=== PATIENT | male | born 1955 | race Caucasian/White ===

== ENCOUNTER 2021-12-24 02:19 | Day surgery (SDC) | payer OTHER, SELFPAY ==
[2021-12-09 14:33] VITALS: BMI 46.9
[2021-12-24 09:47] VITALS: BP 114/82; PULSE 73; RESP 22; TEMP 36; O2SAT 97; BMI 45.7
[2021-12-24] MEDS: LACTATED RINGERS 1,000 ML 150 ML IV CONT (10:06)
--- NOTE | 2021-12-24 10:40 | PM.IMHP ---
H&P: HPI History of Present Illness Date/Time: 12/24/21 10:40 Chief Complaint: History of colon polyps. Narrative: This is a 66-year-old white male patient presents for screening colonoscopy. Patient reports that his current weight appetite and bowel movements are normal. He denies abdominal pain. Patient has had no bleeding. Family history noncontributory. Patient does have a prior history of adenomatous colon polyp removed from the colon at previous colonoscopy 2016. Patient presents today for neoplasia screening. Review of Systems Review of Systems: Review of systems noncontributory. [facility] Past Medical History Medical History (Updated 12/24/21 @ 10:41 by Maurilio Vázquez MD) Aortic atherosclerosis History of fracture of left ankle History of TIA (transient ischemic attack) Hypertension Morbid obesity with BMI of 45.0-49.9, adult Pure hypercholesterolemia, unspecified Ventral hernia Surgical History Surgical History (Updated 07/30/21 @ 11:25 by Tyler Bishop) History of appendectomy History of carpal tunnel surgery of right wrist History of surgery on arm left Family History Family History (System 07/30/21 @ 11:25 by Tyler Bishop) Father Acute myocardial infarction Heart disease Diabetes mellitus Social History Social History (System 07/30/21 @ 11:25 by Tyler Bishop) Smoking packs per day: 1 Smoking cigarettes per day: 20.0 Years smoked: 20 Smoking pack-years: 20.00 Smoking status: Former smoker Tobacco type: cigarettes Alcohol intake: never Alcohol use details: 6 pack per year Substance use: never Substance use type: does not use Living arrangements: with family 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[employer] Gender identity (if verbalized by the patient): Male Sexual Orientation (if Verbalized by the Patient): Straight or Heterosexual Spiritual care concerns: No Meds Home Medications and Allergies Home Medications Medication Instructions Recorded Confirmed Type lisinopril 30 mg tablet 30 mg PO DAILY #90 tabs 07/07/21 12/09/21 Rx aspirin 81 mg tablet,delayed 81 mg PO DAILY 07/08/21 12/09/21 History release (Adult Low Dose Aspirin) ezetimibe 10 mg tablet 10 mg PO DAILY #90 tabs 07/08/21 12/09/21 Rx Allergies Allergy/AdvReac Type Severity Reaction Status Date / Time [id number] Reductase AdvReac Mild Muscle Verified 12/09/21 14:31 Inhibitor aches Vital Signs Vital Signs - 24 hr 12/24/21 09:47 Temperature 96.8 F L Pulse Rate 73 Respiratory Rate 22 H Blood Pressure 114/82 Pulse Oximetry 97 Oxygen Delivery Room Air Exam Narrative: Physical exam reveals patient be alert. Vital signs stable. HEENT exam is unremarkable. Patient is anicteric. Lungs are clear to auscultation and percussion. Heart is without murmur or extra sounds. Abdominal exam bowel sounds are present soft nontender with no organomegaly. Digital external rectal exam is normal. Assessment and Plan Assessment and plan (1) History of colon polyps: Code(s): Z86.010 - Personal history of colonic polyps Status: Acute Assessment and Plan: Patient has a prior history of adenomatous colon polyps. Plan is for follow-up colonoscopy at this time and it intervals in the future. Further recommendations will be given after colonoscopy.
--- NOTE | 2021-12-24 10:48 | WPDANESEPPF ---
Anes - Initial Pre Proc Eval Procedure: Operation Date: 12/24/21 10:45 Proposed Procedures p Screening Colonoscopy - Maurilio Vázquez MD Date/Time: 12/24/21 10:48 Surgeon: Maurilio Vázquez MD Pre Op Diagnosis: hx of colon polyps, neoplasm screening Patient Data Age: 66 Gender: M Height: 1.83 m Weight: 153 kg Last Vital Signs Temp 96.8 F L 12/24/21 09:47 Pulse 73 12/24/21 09:47 Resp 22 H 12/24/21 09:47 BP 114/82 12/24/21 09:47 Pulse Ox 97 12/24/21 09:47 O2 Del Method Room Air 12/24/21 09:47 Allergies Allergy/AdvReac Type Severity Reaction Status Date / Time [id number] Reductase AdvReac Mild Muscle Verified 12/09/21 14:31 Inhibitor aches Home Medications Medication Instructions Recorded Confirmed Type lisinopril 30 mg tablet 30 mg PO DAILY #90 tabs 07/07/21 12/09/21 Rx aspirin 81 mg tablet,delayed 81 mg PO DAILY 07/08/21 12/09/21 History release (Adult Low Dose Aspirin) ezetimibe 10 mg tablet 10 mg PO DAILY #90 tabs 07/08/21 12/09/21 Rx Patient hx anesthesia problems: none Family hx anesthesia problems: none Results Review: All pre-operative results and documents have been reviewed as part of the pre-operative evaluation. [facility] Past Medical History Medical History (Updated 12/24/21 @ 10:41 by Maurilio Vázquez MD) Aortic atherosclerosis History of fracture of left ankle History of TIA (transient ischemic attack) Hypertension Morbid obesity with BMI of 45.0-49.9, adult Pure hypercholesterolemia, unspecified Ventral hernia Surgical History Surgical History (Updated 07/30/21 @ 11:25 by Tyler Bishop) History of appendectomy History of carpal tunnel surgery of right wrist History of surgery on arm left Family History Family History (System 07/30/21 @ 11:25 by Tyler Bishop) Father Acute myocardial infarction Heart disease Diabetes mellitus Social History Social History (System 07/30/21 @ 11:25 by Tyler Bishop) Smoking packs per day: 1 Smoking cigarettes per day: 20.0 Years smoked: 20 Smoking pack-years: 20.00 Smoking status: Former smoker Tobacco type: cigarettes Alcohol intake: never Alcohol use details: 6 pack per year Substance use: never Substance use type: does not use Living arrangements: with family 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[employer] Gender identity (if verbalized by the patient): Male Sexual Orientation (if Verbalized by the Patient): Straight or Heterosexual Spiritual care concerns: No Anes - Eval Final PreProcedure Day of Procedure 12/24/21 10:48 Patient weight: morbidly obese Heart: regular rate and rhythm Lungs: clear to auscultation Airway: Mallampati scale class III Neurological: alert and oriented Last oral intake: >/= 8 hours ASA classification: III Emergent: no Anesthetic plan: proceed Anesthesia type and monitoring: general GIVS and standard monitoring Results Review: All pre-operative results and documents have been reviewed as part of the pre-operative evaluation. Informed Consent: The patient's anesthetic plan and its attendant risks and benefits were discussed with the patient/family/POA. Questions were solicited and answers provided to the satisfaction of the patient/family/POA.
[2021-12-24 11:12] VITALS: BP 96/48; PULSE 62; RESP 20; O2SAT 96
--- NOTE | 2021-12-24 11:13 | SUR.OPER ---
2 POLYPS REMOVED, 1 POLYP WAS NOT RETRIEVED, DR. BOURGEOIS AWARE.
[2021-12-24 11:22] VITALS: BP 100/60; PULSE 63; RESP 18; O2SAT 98
[2021-12-24 11:32] VITALS: BP 102/64; PULSE 62; RESP 16; O2SAT 98
== END 2021-12-24 11:39 | disposition home or self-care (01) ==
PROVIDERS: PCP Family Medicine Adolescent Medicine; Visit Provider Internal Medicine Gastroenterology
PROC: 0DJD8ZZ Inspection of Lower Intestinal Tract, Via Natural or Artificial Opening Endoscopic (ICD-10-PCS; CPT 45378; principal; 2021-12-24 10:45)
DX: Z12.11 Encounter for screening for malignant neoplasm of colon (principal); K63.5 Polyp of colon; K64.8 Other hemorrhoids; I70.0 Atherosclerosis of aorta; Z86.73 Personal history of transient ischemic attack (TIA), and cerebral infarction without residual deficits; I10 Essential (primary) hypertension; E78.00 Pure hypercholesterolemia, unspecified; Z87.891 Personal history of nicotine dependence; Z79.82 Long term (current) use of aspirin
CPT/HCPCS: 45385; 88305; J2704; J7120

== ENCOUNTER → 2022-07-29 09:59 | Outpatient (CLI) | payer MEDICARE, OTHER, SELFPAY ==
--- NOTE | ~2022-07-29 | XR_ITS ---
Right Knee Technique: AP and lateral views were obtained. Clinical History: Pain Findings: No fracture or dislocation is seen. Osseous alignment is anatomic. Minimal patellar spurrin g noted. Soft tissues are unremarkable. No joint effusion is seen. Impression: Minimal patellar spurring. Reviewed, dictated and finalized at [facility]. STRIAL THERAPIST Impression: Minimal patellar spurring.
== END ==
PROVIDERS: PCP Family Medicine Adolescent Medicine; Visit Provider Family Medicine Adolescent Medicine
DX: M25.561 Pain in right knee (principal)
CPT/HCPCS: 73560

== ENCOUNTER 2022-09-16 08:09 | Outpatient (CLI) | payer OTHER, MEDICARE, SELFPAY ==
--- NOTE | ~2022-09-16 | MR_ITS ---
MRI of the right shoulder Technique: Axial proton-density fat-sat images, coronal proton density fat-sat and T2 fat-sat images, and sagittal T1-weighted and T2 fat-sat images were acquired. Clinical History: Internal derangement Findings: There is severe AC joint degenerative change, marked bony productive change at the distal c lavicle. Persistent os acromiale are noted. Coracoclavicular ligament is intact. Integrity of the cor acoacromial ligament cannot be confirmed. Coracohumeral ligament is intact. There is complete, full-thickness tear involving the entirety of the supraspinatus tendon. There is p robable full-thickness tear involving the majority of the infraspinatus tendon, with the posterior mo st fibers appear to remain intact. Fluid-filled gap measures approximately 3.4 x 4.1 cm in extent. Knight bscapularis tendon appears to be intact with mild tendinosis. Tendon of the long head of the biceps i s probably intact, with severe intra-articular tendinosis. No definite labral tear identified. Humeral head is high riding. Small glenohumeral joint effusion is present, with fluid passing through the rotator cuff defect into the subacromial/subdeltoid bursa. No muscle atrophy or edema evident. I nferior glenohumeral ligament is intact. Impression: Complete, full-thickness tear of the supraspinatus tendon, with extensive full-thickness tearing of m ost of the infraspinatus tendon as well. Associated high riding humeral head. Severe AC joint degenerative change, with persistent os acromiale. Reviewed, dictated and finalized at location . Impression: Complete, full-thickness tear of the supraspinatus tendon, with extensive full- thickness tearing of most of the infraspinatus tendon as well. Associated high riding humeral head. Severe AC joint degenerative change, with persistent os acromiale.
== END 2022-09-16 08:10 | disposition home or self-care (01) ==
LOC: ANHIMG 08:13
PROVIDERS: PCP Family Medicine Adolescent Medicine; Visit Provider Orthopaedic Surgery
DX: M24.811 Other specific joint derangements of right shoulder, not elsewhere classified (principal); M19.011 Primary osteoarthritis, right shoulder; M75.121 Complete rotator cuff tear or rupture of right shoulder, not specified as traumatic
CPT/HCPCS: 73221